=== PATIENT | female | born 1935 | race Caucasian/White ===

== ENCOUNTER 2023-04-17 07:51 | Outpatient (CLI) | payer OTHER, SELFPAY | END 2023-04-17 07:52 | disposition home or self-care (01) | PROVIDERS: Visit Provider Nurse Practitioner Family | DX: I73.9 Peripheral vascular disease, unspecified (principal); L97.812 Non-pressure chronic ulcer of other part of right lower leg with fat layer exposed; L97.322 Non-pressure chronic ulcer of left ankle with fat layer exposed; Z79.60 Long term (current) use of unspecified immunomodulators and immunosuppressants | CPT/HCPCS: 11042; 99203 ==

== ENCOUNTER 2023-04-24 08:51 | Outpatient (CLI) | payer OTHER, SELFPAY | END 2023-04-24 08:52 | disposition home or self-care (01) | LOC: WOUND 08:51 | PROVIDERS: Visit Provider Nurse Practitioner Family | DX: I73.9 Peripheral vascular disease, unspecified (principal); L97.812 Non-pressure chronic ulcer of other part of right lower leg with fat layer exposed; L97.322 Non-pressure chronic ulcer of left ankle with fat layer exposed; Z79.60 Long term (current) use of unspecified immunomodulators and immunosuppressants | CPT/HCPCS: 97597 ==

== ENCOUNTER 2023-05-15 14:50 | Outpatient (CLI) | payer OTHER, SELFPAY | END 2023-05-15 14:51 | disposition home or self-care (01) | LOC: WOUND 14:50 | PROVIDERS: Visit Provider Nurse Practitioner Family | DX: I87.2 Venous insufficiency (chronic) (peripheral) (principal); L97.322 Non-pressure chronic ulcer of left ankle with fat layer exposed; L97.812 Non-pressure chronic ulcer of other part of right lower leg with fat layer exposed | CPT/HCPCS: 97597 ==

== ENCOUNTER 2023-06-12 09:04 | Outpatient (CLI) | payer MEDICARE, SELFPAY | END 2023-06-12 09:05 | disposition home or self-care (01) | PROVIDERS: Visit Provider Nurse Practitioner Family | DX: I87.2 Venous insufficiency (chronic) (peripheral) (principal); I73.9 Peripheral vascular disease, unspecified; L97.812 Non-pressure chronic ulcer of other part of right lower leg with fat layer exposed | CPT/HCPCS: 97597 ==

== ENCOUNTER 2023-07-10 10:07 | Outpatient (CLI) | payer MEDICARE, OTHER, SELFPAY | END 2023-07-10 10:08 | disposition home or self-care (01) | LOC: WOUND 10:07 | PROVIDERS: Visit Provider Nurse Practitioner Family | DX: I87.2 Venous insufficiency (chronic) (peripheral) (principal); I73.9 Peripheral vascular disease, unspecified; L97.812 Non-pressure chronic ulcer of other part of right lower leg with fat layer exposed; L97.322 Non-pressure chronic ulcer of left ankle with fat layer exposed; Z79.60 Long term (current) use of unspecified immunomodulators and immunosuppressants | CPT/HCPCS: 97597 ==